=== PATIENT | female | born 1975 | race Caucasian/White ===

== ENCOUNTER 2021-01-07 12:08 | Emergency (ER) | payer OTHER, SELFPAY ==
[2021-01-07 12:35] VITALS: BP 149/79; PULSE 100; RESP 16; TEMP 37.4; O2SAT 100
--- NOTE | 2021-01-07 12:35 | ED.URI ---
HPI - URI/Sore Throat General Chief Complaint: Skin/Abscess/Foreign Body Stated Complaint: eye irritation/ear pain/sore throat Time Seen by Provider: 01/07/21 12:35 Source: patient and RN notes reviewed Mode of arrival: ambulatory Limitations: no limitations History of Present Illness HPI Narrative: 45-year-old female presents with concern for painful rash to the right side of her neck, face. Reports pain near the ear, right eye irritation and dryness. Reports mild right eye itchiness, dryness that is worse in the morning and improves throughout the day. She denies any intervention for her symptoms. Reports a history of shingles infection on her torso. She denies any vision changes, eye pain, eye drainage. Denies body aches, chills, fever, malaise. Denies rhinorrhea, nasal congestion, sore throat, cough, shortness of breath. MD elicited complaint: other (rash) Related Data Home Medications Medication Instructions Recorded Confirmed ergocalciferol (vitamin D2) 01/07/21 levothyroxine 01/07/21 nifedipine PO 01/07/21 Allergies Allergy/AdvReac Type Severity Reaction Status Date / Time No Known Allergies Allergy Unverified 12/30/16 12:41 Review of Systems Review of Systems: Narrative: CONSTITUTIONAL: Denies malaise, chills, sweats, or fever. EYES: Denies visual changes, pain, or discharge. Reports right eye redness, irritation, dryness ENT: Denies rhinorrhea, congestion, sinus pain, otalgia or sore throat. Reports swollen lymph node near the right ear CARDIOVASCULAR: Denies chest pain, palpitations, or edema. RESPIRATORY: Denies cough or dyspnea. GASTROINTESTINAL: Denies abdominal pain, nausea, vomiting, diarrhea SKIN: Reports burning, mildly itchy rash on the right side of the face, neck MUSCULOSKELETAL: Denies myalgia. NEUROLOGIC: Denies numbness, weakness, or headache. All systems reviewed & are unremarkable except as noted in HPI and below PMFSH Social History Social History Smoking status: Never smoker Alcohol intake: never Comments At time of signature, agree with nursing past medical, surgical, social and family history. There is no relevant family history pertinent to the presenting complaint Exam Narrative: Exam Narrative: GENERAL: Well-appearing, well-nourished, and in no acute distress. HEAD: Normocephalic, atraumatic. EYES: PERRLA, conjunctivae clear, and EOMI. No nystagmus. Right sclera injected. ENT: Nares clear, turbinates pink, no rhinorrhea or epistaxis. Mucous membranes moist. TM pearly valenzuela with sharp light reflex bilaterally; no tragal tenderness. Oropharynx without erythema or lesions. Tonsils not enlarged and without exudate. NECK: Supple. Mild right auricular lymphadenopathy. CHEST: No respiratory distress. Speaks in full sentences. HEART: Regular rate and rhythm SKIN: Warm, dry. Zosteriform rash noted to the right neck, face NEURO: Alert and oriented x3. PSYCH: Normal mood and affect Course Course Emergency Course: Patient instructed to call maintenance and repair worker today to make an appointment for evaluation of the right eye. Patient given reasons to go the emergency room. Patient is aware of diagnosis, understands and agrees to treatment plan. Anticipatory guidance given. Patient agrees to follow-up as directed and is aware of reasons to seek care at the emergency department. Portions of this record may have been created with voice recognition software Vital Signs Vital signs: Vital Signs Temperature 99.4 F 01/07/21 12:35 Pulse Rate 100 01/07/21 12:35 Respiratory Rate 16 01/07/21 12:35 Blood Pressure 149/79 H 01/07/21 12:35 Pulse Oximetry 100 01/07/21 12:35 Temperature 99.4 F 01/07/21 12:35 Pulse Rate 100 01/07/21 12:35 Respiratory Rate 16 01/07/21 12:35 Blood Pressure 149/79 H 01/07/21 12:35 Pulse Oximetry 100 01/07/21 12:35 Reviewed. MDM - URI/Sore Throat MDM Narrative Medical decision making narrative: Does not appear at this time
== END 2021-01-07 12:54 | disposition home or self-care (01) ==
PROVIDERS: Emergency Provider Nurse Practitioner
DX: B02.30 Zoster ocular disease, unspecified (principal); I10 Essential (primary) hypertension; E03.9 Hypothyroidism, unspecified
CPT/HCPCS: 99203; G0463